=== PATIENT | male | born 1980 | race Two or more races ===

== ENCOUNTER 2023-09-25 07:18 | Inpatient (IN) | payer OTHER ==
[~2023-09-25] VITALS: Ht 165.1 cm; Wt 81.6 kg
[~2023-09-25 07:18] MED LIST: BUPIVACAINE 0.5 % PF 150 MG/30 ML VIAL ONE; methylPREDNISolone ACETATE 80 MG/ML VIAL ONE
[2023-09-25] MEDS ORDERED: ROPIVACAINE HCL 0.5% 5 MG/ML 30ML VIAL ONE (07:36)
[2023-09-25] MEDS ORDERED: FENTANYL PF 250MCG/5ML AMPUL ONE (07:59)
[2023-09-25] MEDS ORDERED: ONDANSETRON HCL/PF 4 MG/2 ML VIAL ONE (10:05)
[2023-09-25] MEDS: ALBUTEROL FS 2.5 MG/0.5 ML VIAL.NEB NEB PRN (14:11)
[2023-09-25] MEDS: IPRATROPIUM NEB FS 0.5 MG/2.5 ML AMPUL.NEB NEB PRN (14:11)
[2023-09-25 14:15] VITALS: O2SAT 98
[2023-09-25] MEDS ORDERED: HYDROCODONE/APAP 5/325MG TABLET PO PRN ×2 (14:30→19:30)
[2023-09-25 17:40] VITALS: O2SAT 96
[2023-09-25] MEDS: HYDROCODONE/APAP 5/325MG TABLET PO PRN (18:31)
[2023-09-25 20:00] VITALS: BP_SYST 124; BP_SYST 153; BP_DIAS 79; BP_DIAS 95; TEMP 97.9; TEMP 98.8; O2SAT 98
[2023-09-25 20:19] VITALS: BP 137/89; TEMP 97.8; O2SAT 97
[2023-09-25 22:00] VITALS: BP 107/65; TEMP 97.9; O2SAT 98
[2023-09-25] MEDS ORDERED: ONDANSETRON HCL/PF 4 MG/2 ML VIAL IVP PRN (22:00)
[2023-09-25] MEDS ORDERED: ACETAMINOPHEN 325 MG TABLET PO PRN (22:00)
[2023-09-25] MEDS ORDERED: MAG HYDROX/AL HYDROX/SIMETH 30 ML UDC PO PRN (22:00)
[2023-09-25] MEDS ORDERED: Z GUARD REMEDY 4 OZ OINT TP PRN (22:00)
[2023-09-25] MEDS ORDERED: MAGNESIUM HYDROXIDE 30 ML UDC PO PRN (22:00)
[2023-09-25] MEDS: ZOLPIDEM TARTRATE 5 MG TABLET PO PRN (23:31)
[2023-09-26] MEDS: MORPHINE SULFATE INJ 2 MG/ML DISP.SYRIN IV PRN (03:37)
[2023-09-26] MEDS: PANTOPRAZOLE 40 MG TABLET.DR PO SCH (06:36)
[2023-09-26 06:58] LABS: BASOPHILS % (AUTO) 0.1 % (0.0-2.0); EOSINOPHILS # (AUTO) 0.1 K/uL (0.0-0.7); EOSINOPHILS % (AUTO) 0.5 % (0.0-6.0); HEMATOCRIT 44 % (39-51); HEMOGLOBIN 14.9 g/dL (13.5-17.5); LYMPHOCYTES # (AUTO) 3.9 K/uL (0.8-4.8); LYMPHOCYTES % (AUTO) 20.7 % (20.0-44.0); MEAN CORPUSCULAR HEMOGLOBIN 33 PG (26.0-33.0); MEAN CORPUSCULAR HGB CONC 34 g/dl (31.0-36.0); MEAN CORPUSCULAR VOLUME 96 fL (80-96); MONOCYTES # (AUTO) 1.5 K/uL (0.1-1.30); NEUTROPHILS # (AUTO) 13.3 K/uL (1.8-8.9); NEUTROPHILS % (AUTO) 70.7 % (43.0-81.0); PLATELET COUNT (AUTO) 156 K/uL (150-450); RED BLOOD CELL COUNT(AUTO) 4.56 MIL/uL (4.5-6.0); RED CELL DISTRIBUTION WIDTH 13.1 % (11.5-15.0); WHITE BLOOD COUNT (AUTO) 18.9 K/uL (4.3-11.0)
[2023-09-26 07:20] LABS: CALCIUM, SERUM 8.7 mg/dL (8.5-10.1); CREATININE 1.1 mg/dL (0.6-1.3); MAGNESIUM 1.9 mg/dL (1.8-2.4); PHOSPHORUS 3.8 mg/dL (2.5-4.9); POTASSIUM 4.2 mmol/L (3.5-5.1)
[2023-09-26 08:00] VITALS: BP 123/103; TEMP 98.6; O2SAT 98
[2023-09-26 16:00] VITALS: BP 134/88; TEMP 98.1; O2SAT 99
[2023-09-26] MEDS ORDERED: IOHEXOL-350 100 ML VIAL IV ONE (17:40)
[2023-09-26] MEDS ORDERED: IV NS 0.9% 250 ML IV ONE (17:40)
[2023-09-26] MEDS ORDERED: CT SWABBABLE VALVE TRANS SET 1 EA INFUS.SET MC ONE (17:40)
[2023-09-26 17:54] LABS: THYROID STIMULATING HORMONE 2.66 uIU/mL (0.358-3.74)
== END 2023-09-26 21:00 | disposition home or self-care (01) | DRG 508 ==
LOC: DS 07:18 → MED 11:00
PROVIDERS: ADMIT Nurse Practitioner Acute Care; ATTEND Nurse Practitioner Acute Care
PROC: 0RU Upper Joints, Supplement (ICD-10-PCS; principal; 2023-09-25)
PROC: 0RQH0ZZ Repair Left Acromioclavicular Joint, Open Approach (ICD-10-PCS; 2023-09-25)
DX: S43.102A Unspecified dislocation of left acromioclavicular joint, initial encounter (principal); R06.00 Dyspnea, unspecified; R29.810 Facial weakness
CPT/HCPCS: 36415; 70450-TC; 71045-TC; 80048-TC; 80061-TC; 82607-TC; 83735-TC; 84100-TC; 84443-TC; 85025-TC; 94799-TC; A4565; C1713; G0378; J0360; J0690; J1010; J1100; J1885; J2270; J2310; J2405; J2704; J2795; J3010; J3490; J7030; J7050; Q9967